=== PATIENT | female | born 1975 | race Caucasian/White ===

== ENCOUNTER 2019-10-18 11:07 | Outpatient (CLI) | payer OTHER | END 2019-10-18 11:18 | disposition home or self-care (01) | LOC: SONOGRAMA 11:07 | PROVIDERS: ATTEND Pathology Anatomic Pathology | DX: E04.1 Nontoxic single thyroid nodule (principal) ==

== ENCOUNTER 2021-11-11 06:04 | Day surgery (SDC) | payer OTHER ==
[~2021-11-11 06:04] MED LIST: LOSARTAN POTASS50 MG
== END 2021-11-11 10:35 | disposition home or self-care (01) ==
LOC: CIR.AMB 06:04
PROVIDERS: ATTEND Surgery Surgery of the Hand
DX: M71.38 Other bursal cyst, other site (principal); Z88.6 Allergy status to analgesic agent; I10 Essential (primary) hypertension